=== PATIENT | female | born 1985 | race Caucasian/White ===

== ENCOUNTER 2022-03-10 19:37 | Emergency (ER) | payer OTHER, SELFPAY ==
[2022-03-10 19:53] VITALS: BP 113/66; PULSE 80; RESP 18; TEMP 37.2; O2SAT 100
--- NOTE | 2022-03-10 20:02 | ED.GENADULT ---
HPI - General Adult General Chief complaint: Upper Respiratory Infection Stated complaint: throat and ear pain History of Present Illness HPI narrative: Patient is a 37 y/o female who presents to the [facility] via pov for an evaluation of upper resp sx that have been present x5 days. Additionally, she reports sore throat, bilat ear pain and ringing. No relief with Robitussin. She is fully vaccinated against COVID. She also reports exposure to coworker who have colds . Related Data Allergies Allergy/AdvReac Type Severity Reaction Status Date / Time No Known Allergies Allergy Verified 03/10/22 20:01 Review of Systems Review of Systems: Denies history of COPD, bronchitis, asthma, and pneumonia. Denies current/past tobacco use. Pertinent negatives: fever, sweats, chills, change in appetite, fatigue, skin color changes, headache, nasal congestion/discharge, dizziness, lymphadenopathy, sinus problems, drooling, voice changes, ear drainage, hearing difficulty, chest pain, heart murmurs, heart palpitations, shortness of breath, wheezing, cyanosis, hemoptysis, hoarseness, orthopnea, pleuritic pain, nausea, vomiting, diarrhea, and myalgias. PMFSH Comments I have reviewed and agree with the patient's past medical, surgical, social, and family hx as documented by the RN. There is no relevant family history pertinent to the presenting complaint. Exam Narrative: GENERAL: Well-appearing, well-nourished, and in no acute distress. HEAD: Normocephalic, atraumatic. No sinus tenderness or facial swelling appreciated. EYES: PERRLA and EOMI. No evidence of erythema, swelling, or drainage. ENT: Bilateral external ears and ear canals normal. Bilateral TMs are normal.No TM perforation. Nares clear, no rhinorrhea or epistaxis. Bilateral turbinates without erythema/ swelling. Mucous membranes moist and pink. Uvula is midline without erythema and swelling. Posterior pharynx is moderately erythematous otherwise normal. Breath odor and voice normal. NECK: Supple. No Lymphadenopathy or nuchal rigidity appreciated. CHEST: Bilateral lung live are clear to auscultation. No respiratory distress. No evidence of cough or pleuritic cp upon examination. HEART: Regular rate and rhythm. No murmur, gallop, or rub heard. EXTREMITIES: Normal range of motion. No edema. SKIN: Warm, dry, no rash. NEURO: No focal deficits. Alert and oriented x3. Course Course Level of Care: Express Care Visit Vital Signs Vital signs: Vital Signs Temperature 99 F 03/10/22 19:53 Pulse Rate 80 03/10/22 19:53 Respiratory Rate 18 03/10/22 19:53 Blood Pressure 113/66 03/10/22 19:53 Pulse Oximetry 100 03/10/22 19:53 Oxygen Delivery Room Air 03/10/22 19:53 Temperature 99 F 03/10/22 19:53 Pulse Rate 80 03/10/22 19:53 Respiratory Rate 18 03/10/22 19:53 Blood Pressure 113/66 03/10/22 19:53 Pulse Oximetry 100 03/10/22 19:53 Oxygen Delivery Room Air 03/10/22 19:53 Reviewed Medical Decision Making Differential Diagnosis Differential Diagnosis: Allergic rhinitis, ABRS, acute viral sinusitis, strep pharyngitis, nasopharyngitis, bronchitis, pneumonia, AOM, otitis externa, viral URI, influenza, covid-19 Vital Signs Vital Signs: Vital Signs Temperature 99 F 03/10/22 19:53 Pulse Rate 80 03/10/22 19:53 Respiratory Rate 18 03/10/22 19:53 Blood Pressure 113/66 03/10/22 19:53 Pulse Oximetry 100 03/10/22 19:53 Oxygen Delivery Room Air 03/10/22 19:53 Temperature 99 F 03/10/22 19:53 Pulse Rate 80 03/10/22 19:53 Respiratory Rate 18 03/10/22 19:53 Blood Pressure 113/66 03/10/22 19:53 Pulse Oximetry 100 03/10/22 19:53 Oxygen Delivery Room Air 03/10/22 19:53 Critical Care Time Critical Care Time Critical Care Time: No Discharge Plan Discharge Clinical Impression: Upper respiratory infection Patient Disposition: Home, Self-Care Condition: Stable Instructions: Upper Re
== END 2022-03-10 20:08 | disposition home or self-care (01) ==
PROVIDERS: Emergency Provider Nurse Practitioner Family; PCP Family Medicine
DX: J06.9 Acute upper respiratory infection, unspecified (principal)
CPT/HCPCS: 99213; G0463

== ENCOUNTER 2023-07-21 18:20 | Emergency (ER) | payer OTHER, SELFPAY ==
--- NOTE | 2023-07-21 18:23 | ED.URI ---
HPI - URI/Sore Throat General Chief Complaint: Upper Respiratory Infection Stated Complaint: Sinus Time Seen by Provider: 07/21/23 18:22 Source: patient Mode of arrival: ambulatory Limitations: no limitations History of Present Illness HPI Narrative: Jes is a 38-year-old female patient presenting to the clinic today with complaints of possible sinus infection. She reports she has had nasal congestion, sinus pressure, and productive cough since mid June. States that she is coughing up green phlegm. Also reports that she has been having a lot of headaches and pain in her teeth. Related Data Allergies Allergy/AdvReac Type Severity Reaction Status Date / Time No Known Allergies Allergy Verified 03/10/22 20:01 Review of Systems Review of Systems: Pertinent positives per HPI. Patient denies any fever, chills, rash, visual changes, dizziness, sore throat, shortness of breath, chest pain, palpitations, nausea, vomiting, diarrhea, constipation, abdominal pain, or any urinary issues. PMFSH Comments At the time of my signature, I reviewed and agree with the nursing past medical, surgical, social, and family history. There is no relevant family history pertinent to the patient complaint. Exam Narrative: General: Well-developed, well nourished, in no apparent distress Head: Normocephalic, atraumatic Eyes: Pupils equally round and reactive to light bilaterally, EOM intact, sclera and conjunctive clear, no discharge, lids normal Ears: TMs intact and clear, ear canals clear, no drainage, grossly hearing normal. Nose: Nares patent, green nasal discharge, severe inflammation, maxillary and frontal sinus tenderness. Mouth: Oropharynx without lesions or masses, good dentition, MMM. Postnasal drip Neck: Supple, trachea midline, no enlargement of anterior or posterior cervical nodes, no thyroid masses or goiter palpable. Cardio: Regular rate and rhythm, s1 and s2 normal, no murmur appreciated. Resp: Clear to auscultation bilaterally anteriorly and posteriorly, no rhonchi, rales, wheezing or rubs Course Course Emergency Course: Portions of this record may have been created with voice recognition software. Level of Care: Express Care Visit Vital Signs Vital signs: Vital signs reviewed MDM - URI/Sore Throat MDM Narrative Medical decision making narrative: At the time of visit patient is resting comfortably on the exam table. Patient appears to be nontoxic. I suspect patient has acute bacterial rhinosinusitis. Prescription for Augmentin and prednisone was sent to the pharmacy. Supportive measures were discussed with the patient and they voiced understanding discharge instructions and agrees to treatment plan. Return precautions reviewed Differential Diagnosis Differential diagnosis: Likely upper respiratory infection, otitis media, sinusitis, viral infection, bronchitis, influenza, pharyngitis and other (COVID) Discharge Plan Discharge Clinical Impression: Acute bacterial rhinosinusitis Patient Disposition: Home, Self-Care Condition: Stable Instructions: Antibiotic Form, Rhinosinusitis (DC) Additional Instructions: Take prescription medications only as prescribed-Augmentin and prednisone. Increase fluids and stay well hydrated Tylenol/motrin for pain/fever Flonase and OTC antihistamines as directed Vicks vapor rub to open sinuses Sinus rinses for congestion Cepacol spray, cough drops, throat lozenges, warm tea with honey/lemon, gargle salt water to soothe throat BRAT diet for diarrhea Clear liquids x 24 hours then advance as tolerated for nausea/vomiting Go to the ED if you develop a worsening in your condition- high fever not controlled by Tylenol or Motrin, dehydration, weakness, lethargy, shortness of breath, or chest pain. Follow up with your PCP in 3-5 days if symptoms persist. Prescriptions: New prednisone 20 mg tablet 40 mg PO DAILY 5 Days Qty: 10 0RF amoxicill
[2023-07-21 18:34] VITALS: BP 128/84; PULSE 79; RESP 16; TEMP 36.2; O2SAT 100
== END 2023-07-21 18:45 | disposition home or self-care (01) ==
PROVIDERS: Emergency Provider Nurse Practitioner Family; PCP Family Medicine
DX: J01.90 Acute sinusitis, unspecified (principal); B96.89 Other specified bacterial agents as the cause of diseases classified elsewhere
CPT/HCPCS: 99213; G0463

== ENCOUNTER 2023-10-25 08:42 | Outpatient (CLI) | payer OTHER, SELFPAY ==
--- NOTE | ~2023-10-25 | MMUS_ITS ---
EXAMINATION: MM diag maliha implant BI w shannan, US breast BI complete HISTORY: Breast pain TECHNIQUE: Additional 3-D tomosynthesis images of the breasts were performed and synthetic 2-D images were generated. CAD analysis was submitted and interpreted. High resolution bilateral complete breas t ultrasound was performed. COMPARISON: None BREAST PARENCHYMAL COMPOSITION: Dense: The breasts are extremely dense, which lowers the sensitivity of mammography. FINDINGS: MAMMOGRAPHIC FINDINGS: There are no suspicious masses, calcifications or architectural distortion in either breast to sugges t malignancy. ULTRASOUND: Complete bilateral US of all 4 quadrants of the breasts and retroareolar region was reviewed. Right breast: At 10:00, 5 cm from the nipple there is a 4 mm cyst. No suspicious masses are identifie d in the right breast to suggest malignancy. Left breast: Normal heterogeneous echotexture without focal solid or cystic mass. IMPRESSION: 1. No evidence for malignancy in either breast. 2. Routine yearly screening mammogram and regular clinical breast examination are recommended. BI-RADS Category 2: Benign finding(s). Reviewed, dictated and finalized at location A. IMPRESSION: 1. No evidence for malignancy in either breast. 2. Routine yearly screening mammogram and regular clinical breast examination a re recommended. BI-RADS Category 2: Benign finding(s).
== END 2023-10-25 08:43 ==
LOC: MICIMG 08:44
PROVIDERS: PCP Nurse Practitioner; Visit Provider Nurse Practitioner
DX: N64.4 Mastodynia (principal)
CPT/HCPCS: 76641; 77062; 77066; G0279